=== PATIENT | male | born 1955 | race Caucasian/White ===

== ENCOUNTER → 2018-01-24 | Outpatient (CLI) | payer MEDICARE, OTHER ==
--- NOTE | 2018-01-24 16:33 | CT ---
EXAMINATION TYPE: CT abdomen wo/w con DATE OF EXAM: 01/24/2018 COMPARISON: 12/10/2013 HISTORY: renal mass CT DLP: 485.8 mGycm CONTRAST: CT scan of the abdomen and pelvis is performed without and with Oral Contrast and with IV Contrast, p atient injected with 100 mL of Isovue 300. FINDINGS: LUNG BASES-: No visible nodule. No infiltrate. LIVER/GB: No calcified gallstones. No space occupying hepatic lesion. Biliary tree is of normal ca liber. PANCREAS: No inflammation. No distinct mass. SPLEEN: No splenic enlargement. No lesion seen. ADRENALS: No nodule. No thickening. KIDNEYS/BLADDER: No hydronephrosis. No nephrolithiasis. No distinct solid renal mass. Simple cyst lower pole right kidney measures 2.2 cm. Subcentimeter simple cyst upper pole left kidney. Urinary bl adder grossly unremarkable. BOWEL: Normal appendix. Normal bowel caliber. No inflammation. LYMPH NODES: No greater than 1cm abdominal or pelvic lymph nodes are appreciated. AORTA: No significant abnormality. OSSEOUS STRUCTURES: No significant abnormality is seen. OTHER: No significant additional abnormality is seen. IMPRESSION: 1. No solid renal masses identified. No hydronephrosis. Renal cystic changes.
== END | disposition home or self-care (01) ==
LOC: RADCTMAIN 15:05
PROVIDERS: ATTEND Internal Medicine
DX: N28.1 Cyst of kidney, acquired (principal)
CPT/HCPCS: 74170; Q9967

== ENCOUNTER → 2018-02-12 | Outpatient (CLI) | payer MEDICARE, OTHER ==
--- NOTE | 2018-02-12 09:27 | MR ---
MR lumbar spine wo con LBP, radiates into buttocks x 6 years Multiplanar, multiecho imaging of the lumbar spine was obtained without contrast on a 3 Rowan magnet. REFERENCE: Previous study dated 04/19/2015. FINDINGS: Paraspinal soft tissues are normal. Vertebral body height and alignment are maintained. Cord signal is maintained. The conus ends normally at the level of the mid body of L2. At T12-L1, there is mild disc space loss. There is right-sided intervertebral foraminal narrowing. Th is hypertrophic change and capsulitis within the facets. There is moderate central canal compromise. L1-2, intervertebral foramina are well maintained. There is mild hypertrophic change and capsulitis w ithin the facets. There is minimal trefoiling of the thecal sac. At L2-3,[ there is disc space loss. There is right-sided intervertebral foraminal narrowing. There is a diffuse disc displacement. There are hypertrophic changes in the facets. There is mild to moderate central canal compromise. L3-4, there is bilateral intervertebral foraminal narrowing. There is a diffuse disc displacement. Th is hypertrophic change and capsulitis within the facets. There is mild to moderate central canal comp romise. At L4-5, the intervertebral foramina are well maintained. There is a diffuse disc displacement. There is moderate hypertrophic change and capsulitis within the facets. There is moderate central canal co mpromise. At L5-S1, there is severe disc space loss. There is no significant compressive discopathy. Interverte bral foramina are well maintained. There is moderate hypertrophic change and capsulitis within the fa cets. IMPRESSION: 1. DIFFUSE DEGENERATIVE DISC DISEASE AND FACET ARTHROPATHY. 2. MULTILEVEL INTERVERTEBRAL FORAMINAL NARROWING. 3. VARYING DEGREES OF CENTRAL CANAL COMPROMISE, MOST MARKED AT L4-5.
== END | disposition home or self-care (01) ==
LOC: RADMRIMAIN 07:55
PROVIDERS: ATTEND Psychiatry & Neurology Neurology
DX: M54.5 Low back pain (principal); M51.36 Other intervertebral disc degeneration, lumbar region; M46.96 Unspecified inflammatory spondylopathy, lumbar region; M99.73 Connective tissue and disc stenosis of intervertebral foramina of lumbar region
CPT/HCPCS: 72148

== ENCOUNTER 2021-10-25 03:38 | Emergency (ER) | payer MEDICARE, OTHER ==
[2021-10-25 03:52] VITALS: BP 127/68; PULSE 77; RESP 15; TEMP 97.9
--- NOTE | 2021-10-25 05:54 | CT ---
EXAMINATION TYPE: CT brain cspine wo con DATE OF EXAM: 10/25/2021 COMPARISON: 05/29/2015 HISTORY: Fall. ETOH CT DLP: 1365 mGycm Automated exposure control for dose reduction was used. Images obtained of the brain and cervical spine with no contrast. FINDINGS: Ventricles of normal size. There is no mass effect or midline shift. No sign of intracranial hemorrha ge. Calvarium is intact. Exam limited slightly by motion. The cervical vertebra have normal alignment. There is degenerative disc space narrowing at C5-6 and C 6-7 with spurring. No compression fracture. There is multilevel facet arthropathy. IMPRESSION: Negative CT scan of the brain. No change. Ordinary spondylotic changes in the lower cervical spine. No fracture. No change.
--- NOTE | 2021-11-18 17:23 | ED ---
Alcohol HPI - General Chief Complaint: Alcohol Stated Complaint: ETOH Time Seen by Provider: 10/25/21 04:03 Source: EMS Mode of arrival: EMS Limitations: no limitations - History of Present Illness Initial Comments: This patient is 66-year-old man brought to have evaluation for suspected intoxication. Patient denied trauma but otherwise not able to cooperate with history and physical exam. MD Complaint: alcohol intoxication Last Drink: unknown Previous Visits for Alcohol Intoxication?: No Recent Trauma: No Associated Symptoms: vomiting Treatments Prior to Arrival: none - Related Data Home Medications Medication Instructions Recorded Confirmed Gabapentin [Neurontin] 300 mg PO TID 05/29/15 05/29/15 Hydrocodone/Acetaminophen 1 tab PO Q4-6H 05/29/15 05/29/15 [Hydrocodone/Acetaminophen 10-300] Previous Rx's Medication Instructions Recorded Clindamycin [Cleocin] 450 mg PO Q8HR #90 capsule 05/29/15 Allergies Allergy/AdvReac Type Severity Reaction Status Date / Time Penicillins Allergy Unknown Verified 05/29/15 00:45 Review of Systems ROS Statement: Those systems with pertinent positive or pertinent negative responses have been documented in the HPI. ROS Other: All systems not noted in ROS Statement are negative. Limitations: ROS unobtainable due to patients medical condition (Appears intoxicated) Respiratory: Denies: dyspnea Cardiovascular: Denies: chest pain Gastrointestinal: Reports: vomiting. Denies: abdominal pain Musculoskeletal: Denies: back pain Neurological: Denies: headache Past Medical History Past Medical History: Atrial Fibrillation History of Any Multi-Drug Resistant Organisms: None Reported Past Surgical History: No Surgical Hx Reported Past Psychological History: No Psychological Hx Reported Past Alcohol Use History: None Reported Past Drug Use History: None Reported General Exam Limitations: no limitations General appearance: alert, in no apparent distress, appears intoxicated Head exam: Present: atraumatic, normocephalic Eye exam: Present: normal appearance, PERRL, EOMI, nystagmus. Absent: scleral icterus, conjunctival injection Neck exam: Present: normal inspection. Absent: tenderness Respiratory exam: Present: normal lung sounds bilaterally. Absent: respiratory distress, wheezes, rales, rhonchi, stridor, chest wall tenderness Cardiovascular Exam: Present: regular rate, normal rhythm, normal heart sounds. Absent: systolic murmur, diastolic murmur, rubs, gallop GI/Abdominal exam: Present: soft. Absent: distended, tenderness, guarding Extremities exam: Present: normal inspection, full ROM, normal capillary refill. Absent: tenderness Back exam: Absent: vertebral tenderness Neurological exam: Present: alert, other (Patient not fully cooperative with neurologic exam, does follow simple commands, moving all 4 extremities. Otherwise with mild ataxia and mild dysarthria) Skin exam: Present: warm, dry, intact, normal color. Absent: rash Course Vital Signs 10/25/21 03:49 Temperature 97.9 F Pulse Rate 77 Respiratory 15 Rate Blood Pressure 127/68 O2 Sat by Pulse 99 Oximetry Medical Decision Making - Medical Decision Making Patient is 66-year-old man brought for suspected intoxication. CT brain performed to rule out any intracranial injury. After hours, the patient alert and ambulating without difficulty and wanting to leave. Disposition Clinical Impression: Alcoholic intoxication Disposition: HOME SELF-CARE Condition: Good Is patient prescribed a controlled substance at d/c from ED?: No Referrals: Kathy Portillo MD [Primary Care Provider] - 1-2 days
== END 2021-10-25 07:03 | disposition home or self-care (01) ==
LOC: EC 03:38
DX: F10.129 Alcohol abuse with intoxication, unspecified (principal); Z88.0 Allergy status to penicillin
CPT/HCPCS: 70450; 72125; 99285

== ENCOUNTER → 2024-09-05 | Outpatient (CLI) | payer MEDICARE, OTHER ==
--- NOTE | 2024-09-05 20:35 | CT ---
EXAMINATION TYPE: CT chest wo con CT DLP: 216.5 mGycm, Automated exposure control for dose reduction was used. DATE OF EXAM: 09/05/2024 7:07 PM COMPARISON: None CLINICAL INDICATION:Male, 69 years old with history of J44.9 COPD; PHH, COPD, lung nodule TECHNIQUE: Multiple axial images were obtained through the chest without IV contrast. Lack of IV or o ral contrast limits evaluation of solid and hollow organ viscera. . Coronal and sagittal reformats re viewed. FINDINGS: LUNGS/ PLEURA: Mild biapical pleural-parenchymal scarring. Mild paraseptal centrilobular emphysematou s changes. No pleural effusion, pneumothorax, or focal consolidation. Right upper lobe anterior to ma ndibular pulmonary nodule (series 4, image 34). Right lower lobe 2 mm pulmonary nodule (series 4, lucila ge 44). AIRWAY: Patent and unremarkable.. HEART: Size within normal limits. . Small anterior pericardial effusion. No significant coronary chong ry calcifications. MEDIASTINUM: No gross evidence of adenopathy. VASCULATURE: No aortic aneurysm. Mild atelectatic calcification of the aorta and its branches. MUSCULOSKELETAL: No acute osseous abnormalities. Mild multilevel degenerative disc disease of the vis ualized spine. SOFT TISSUES/LYMPH NODES: Unremarkable. LOWER NECK: No significant findings. UPPER ABDOMEN: Partial visualization of right mid kidney simple cyst measuring 2.5 cm with additional left renal superior pole cyst measuring up to 2.3 cm. No follow-up recommended. IMPRESSION: 1. No acute thoracic process. 2. Couple of 2 mm pulmonary nodules. Incidentally detected nodules of this size are generally conside red benign in individuals without concomitant risk factors such as smoking history or other risk fact ors for malignancy. Follow up imaging is generally not performed, in accordance with Fleischner Socie ty guidelines. In high-risk patients, a [address] thorax can be considered. 3. Mild emphysematous changes. [facility], , 09/05/2024 8:32 PM
== END | disposition home or self-care (01) ==
LOC: RADCTMAIN 18:33
PROVIDERS: ATTEND Student in an Organized Health Care Education/Training Program
DX: J44.9 Chronic obstructive pulmonary disease, unspecified (principal); R91.8 Other nonspecific abnormal finding of lung field
CPT/HCPCS: 71250